=== PATIENT | female | born 1965 | race Caucasian/White ===

== ENCOUNTER 2025-01-14 07:42 | Outpatient (AMB) | payer MEDICARE, SELFPAY ==
--- OUTSIDE RECORDS SUMMARY | 2025-01-14 07:45 | XMS_ITS | Clinical Summary ---
Author Organization [facility] [address] [facility] lding Address [address] [place] [address] Phone Care Team Providers Care R D Intern Name Role Phone Bee Pedroza MD Primary Care Provider Allergies Active Allergy Reactions Criticality Noted Date Comments Amoxicillin-Pot Clavulanate Nausea And Vomiting High 10/03/2023 Flavoring Agent (Bulk) Headache 03/16/2017 Artificial sweetener, Sweetness Enhancer Metronidazole Nausea And Vomiting 12/20/2016 Medications latanoprost (XALATAN) 0.005 % ophthalmic solution Administer 1 drop into both eyes at bedtime. 024 Active lisinopril (PRINIVIL,ZESTRIL) 40 mg tablet Take 1 tablet (40 mg total) by mouth 1 (one) time each day. 024 Active melatonin 10 mg tablet Take 1 tablet (10 mg total) by mouth at bedtime. 023 Active insulin glargine (Lantus Solostar U-100 Insulin) 100 unit/mL (3 mL) injection pen 52 Units by subdermal route 1 (one) time each day in the morning. 022 Active multivitamin/iron/f olic acid (CENTRUM ORAL) Take 1 tablet by mouth 1 (one) time each day. Active metFORMIN (GLUMETZA) 500 mg 24 hr tablet Take 2 tablets (1,000 mg total) by mouth 2 (two) times a day with meals. Take 1,000 mg by mouth 2 times daily. 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 V24, [facility] V28),Insulin dependent type 2 diabetes mellitus ([facility] V24, [facility] V28),PAD (peripheral artery disease) ([facility] V24),Fibromyalgia,D iabetic polyneuropathy associated with type 2 diabetes mellitus ([facility] V24, [facility] V28),Employs prosthetic leg Take 1 capsule (20 mg total) by mouth 2 (two) times a day. 180 capsule 1 025 Active aspirin 81 mg EC tablet Take 1 tablet (81 mg total) by mouth 1 (one) time each day. 30 each 025 2025 Active Cinnamon 500 mg capsule Take 1 capsule (500 mg total) by mouth 1 (one) time each day. Active hydroCHLOROthiazide 12.5 mg tablet Take 1 tablet (12.5 mg total) by mouth 1 (one) time each day. 025 2025 Active tirzepatide (Mounjaro) 10 mg/0.5 mL injection Inject 0.5 mL (10 mg total) under the skin every 7 (seven) days. Active pravastatin (PRAVACHOL) 20 mg tablet TAKE 1 TABLET AT BEDTIME 90 tablet 1 025 Active acetaminophen (TYLENOL) 500 mg tablet Take 2 tablets (1,000 mg total) by mouth every 6 (six) hours if needed for mild pain. 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 V24, [facility] V28),Insulin dependent type 2 diabetes mellitus ([facility] V24, [facility] V28),PAD (peripheral artery disease) ([facility] V24),Fibromyalgia,D iabetic polyneuropathy associated with type 2 diabetes mellitus ([facility] V24, [facility] V28),Employs prosthetic leg Take 2 tablets (100 mg total) by mouth at bedtime. 180 tablet 1 Active Ultra-Fine Pen Needle 31 gauge x 5/16 needle USE TO INJECT INSULIN 5 TIMES DAILY 360 each 2 Active nortriptyline (PAMELOR) 50 mg capsule Take 1 capsule (50 mg total) by mouth at bedtime. 90 each 1 Active albuterol HFA (PROAIR HFA ; PROVENTIL HFA ; VENTOLIN HFA) 90 mcg/actuation inhaler USE 2 INHALATIONS EVERY 4 HOURS NEEDED FOR COUGH OR WHEEZING 25.5 g 2 Active SUMAtriptan (IMITREX) 100 mg tablet TAKE 1 TABLET ONCE IF NEEDED FOR MIGRAINE, MAY REPEAT DOSE ONCE IN 2 HOURS IF NO RELIEF. DO NOT EXCEED 2 DOSES IN 24 HOURS 9 tablet 27 Active gabapentin (NEURONTIN) 300 mg capsule TAKE 2 CAPSULES IN THE MORNING, 2 CAPSULES AT NOON AND 4 CAPSULES AT BEDTIME 720 capsule Active buPROPion XL (WELLBUTRIN XL) 300 mg 24 hr tablet TAKE 1 TABLET ONE TIME EACH DAY IN THE MORNING TOGETHER WITH 150 MG OF BUPROPION FOR A TOTAL OF 450 MG 90 tablet Active buPROPion XL (WELLBUTRIN XL) 150 mg 24 hr tablet TAKE 1 TABLET ONE TIME EACH DAY IN THE MORNING TOGETHER WITH 300 MG OF BUPROPION FOR A TOTAL OF 450 MG 90 tablet Active buPROPion XL (WELLBUTRIN XL) 150 mg 24 hr tablet TAKE 1 TABLET ONE TIME EACH DAY IN THE MORNING TOGETHER WITH 300 MG OF BUPROPION FOR A TOTAL OF 450 MG 90 tablet 2024 Discontinued buPROPion XL (WELLBUTRIN XL) 300 mg 24 hr tablet TAKE 1 TABLET ONE TIME EACH DAY IN THE MORNING TOGETHER WITH 150 MG OF BUPROPION FOR A TOTAL OF 450 MG 90 tablet 2024 Discontinued gabapentin (NEURONTIN) 300 mg capsule TAKE 2 CAPSULES IN THE MORNING, 2 CAPSULES AT NOON AND 4 CAPSULES AT BEDTIME 720 capsule 025 2024 Discontinued Active Problems Problem Noted Date Diagnosed Date Bilateral adrenal adenomas 11/28/2024 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) 11/01 Amputation of left lower ext remity below knee (CMS/HCC V24, [facility] V28) 10/14/2024 Pulmonary nodule 10/12/2024 Assessment & Plan (10/15/2024 9:50 AM EDT): Ms. Morales is a 59 y.o. female who had an incidental finding of a 7 mm lobulated nodule in the superior segment of the right lower lobe on a neck CT done on 06/29/24. A chest CT obtained following this finding confirmed this finding, as well as some other nodules. Scattered subcentimeter noncalcified pulmonary nodules are nonspecific. No thoracic lymphadenopathy. Decision at that time was for a repeat chest CT to be obtained in [address] done on 10/08/24 showing stability in the lobulated nodule seen in the superior segment of the right lower lobe, as well stability in the other nodules when compared to the 06/29/24 scan. There was a 16 mm solid, noncalcified nodule at the base of the right lower lobe which was partially obscured on the previous exam but appears grossly without significant change. There is a new 4 mm solid, noncalcified nodule at the base of the right lower lobe is not seen on the previous study. No developing thoracic lymphadenopathy is seen. Discussion was had in regards o pulmonary nodules again in general and how their size, shape, and change management specialist time affect the level of suspicion for malignancy. Options were discussed with the patient including continued observation and referral to Interventional Pulmonology for potential biopsy of these nodules. Patient is advised to call the office with any questions or concerns prior to this appointment. Asthma 12/28/2023 Chronic low back pain 12/28/2023 Migraine 12/28/2023 PCOS (polycystic ovarian syndrome) 12/28/2023 Morbid obesity with BMI of 4 0.0-44.9, adult ([facility] V24, [facility] V28) 12/28/2023 Type 2 diabetes mellitus wit h peripheral angiopathy ([facility] V24, [facility] V28) 02/16/2022 Hyperlipidemia 01/07/2021 Depression 06/18/2020 Cataracts, bilateral 04/28/2020 Type 2 diabetes mellitus wit h diabetic nephropathy ([facility] V24, [facility] V28) 09/16/2019 Seasonal allergies 07/05/2019 Insomnia 01/01/2019 Snoring 12/14/2018 Overview (12/28/2023): 12/2018 Home Sleep Study did not reveal sleep apnea or nocturnal hypoxia. Anxiety 09/10/2018 Type 2 diabetes mellitus wit h mild nonproliferative retinopathy of left eye and macular edema ([facility] V24, [facility] V28) 05/10/2018 Foot deformity 07/18/2017 Overview (12/28/2023): Considering surgical intervention with [facility], Dr. 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 V24) 12/02/2016 Overview (12/28/2023): Outpatient f/u with Dr. Zak Alfaro, [facility] Car[facility] Resolved Problems Problem Noted Date Diagnosed Date Resolved Date Above knee amputation of lef t lower extremity ([facility] V24, [facility] V28) 10/14/2024 10/14/2024 Transient neurological symptoms 06/28/2024 06/30/2024 Encounters Date Type Department Care Team Description 01/08/2025 Telephone Adult Medicine [address] [phone] eBe Pedroza MD 11/27/2024 1:30 PM EDT Office Visit [facility] Hematology Oncology [address] [place] [phone] Ashtyn Linder MD Carcinoid tumor of right lung ([facility] V28) (Primary Dx); Bilateral adrenal adenomas 11/20/2024 9:47 AM EDT - 11/20/2024 11:59 PM EDT Hospital Encounter [facility] Pulmonary [address] [place] [phone] Carcinoid tumor of right lung (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); Malignant carcinoid tumor of the bronchus and lung (CMS/HCC V24, CMS/HCC V28) Discharge Disposition: Home or Self Care 11/11/2024 Telephone Thoracic Surgery [address] [phone] Misti Delcid RN 11/05/2024 9:30 AM EDT Office Visit Pulmonology [address] [phone] Trina Peter MD 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) (Primary Dx); Malignant carcinoid tumor of the bronchus and lung (CMS/HCC V24, CMS/HCC V28) 10/30/2024 8:15 AM EDT Anesthesia Event [facility] [address] [place] [phone] Gi Solis MD 10/30/2024 8:15 AM EDT - 10/30/2024 10:25 AM EDT Surgery [facility] OR [address] [place] [phone] Trina Peter MD FLEXIBLE BRONCHOSCOPY [[id number] (CPT )] 10/30/2024 6:26 AM EDT - 10/30/2024 12:47 PM EDT Hospital Encounter [facility] [address] [place] [phone] Trina Peter MD Pain; Lung nodule Discharge Disposition: Home or Self Care 10/21/2024 Telephone [address]ology [address] [phone] Gail Phipps MA 10/18/2024 8:00 AM EDT Office Visit Pulmonology - [place] [address] [phone] Trina Peter MD Pulmonary nodule; SOB (shortness of breath) 10/15/2024 9:30 AM EDT Office Visit Thoracic Surgery - [place] [address] [phone] Gladys Mccallum NP Pulmonary nodule (Primary Dx) 10/14/2024 10:00 AM EDT Office Visit Adult Medicine - [address] [phone] Jim [place] PA Medicare annual wellness visit, subsequent (Primary Dx); Dog bite, initial encounter; Migraine without status migrainosus, not intractable, unspecified migraine type; Occlusion of right vertebral artery; Type 2 diabetes mellitus with other specified complication, with long-term current use of insulin ([facility] V24, [facility] V28); Insomnia, unspecified type; Anxiety; Depression, unspecified depression type; Class 2 severe obesity with serious comorbidity and body mass index (BMI) of 38.0 to 38.9 in adult, unspecified obesity type (CMS/HCC V24, [facility] V28); Below-knee amputation of left lower extremity, sequela ([facility] V24) from Last 3 Months Immunizations Immunization Administration Dates Next Due Influenza Quadravalent, MDCK , 0.5ml, preservative free (Flucelvax) 6mo and older 01/07/2021 Influenza Quadravalent, MDCK , 0.5ml, with preservative (Flucelvax) 6mo and older 12/20/2016 Influenza Quadrivalent, 0.5m l, preservative free (Fluarix; FluLaval; Fluzone) ages 6mo and older (Afluria) 3yo and older 01/06/2023,12/22/2021 Influenza trivalent, with pr eservative (Fluzone; Afluria) 6mo and older 12/31/2019,12/14/2018,12/01/2017 Influenza, Unspecified 01/10/2023 Pfizer (ages 12 & older) Bivalent, COVID-19 09/2022 Pneumococcal polysaccharide 23 valent (Pneumovax 23) 2yo and older 12/12/2016 Tdap Tetanus diptheria acell ular pertussis (Boostrix; Adacel) 7yo and older 03/16/2017 Zoster recombinant (Shingrix ) 19yo and older 12/01/2017,08/09/2017 Surgical History Surgery Date Site/Laterality Comments SHOULDER SURGERY 09/2016 Right PROCEDURE: HISTORICAL SHOULDER SURGERY; COMMENT: rotator cuff OTHER SURGICAL HISTORY PROCEDURE: INCISION OF ANAL FISTULA; COMMENT: rectoperineal fistula, Dr. Fry at [facility] FOOT SURGERY 12/12/2016 Right PROCEDURE: HISTORICAL FOOT SURGERY; COMMENT: diabetic foot ulcer debridement, 1st and 2nd metatarsal head FOOT SURGERY 08/22/2017 PROCEDURE: HISTORICAL FOOT SURGERY; COMMENT: [facility], Dr. Damico; right hallux metatarsophalangeal fusion 2 through 5, Uribe procedure with tendo Achilles lengthening CATARACT EXTRACTION 11/2019 Bilateral PROCEDURE: HISTORICAL CATARACT REMOVAL AMPUTATION Left Below knee Medical History Medical History Date Comments Asthma DX:Asthma Chronic low back pain DX:Chronic low back pain Diabetes mellitus ([facility] V 24, [facility] V28) DX:Diabetes mellitus ([facility]) H/O diabetic foot ulcer 11/2016 DX:H/O d iabetic foot ulcer; COMMENT: right JUS (acute kidney injury) ([facility] V24) 12/2016 DX:JUS (acute kidney injury) ([facility]) Injury of right rotator cuff DX: Injury of right rotator cuff PCOS (polycystic ovarian syndrome) DX:PCOS (polycystic ovarian syndrome) Migraine DX:Migraine Heart disease DX:Heart disease Essential hypertension DX:Essent ial hypertension Employs prosthetic leg Family History Medical History Relation Name Comments No Known Problems Aunt Seizures Brother 1 No Known Problems Brother 2 Coronary artery disease Father glau coma, seizures No Known Problems Maternal Grandfather No Known Problems Maternal Grandmother Brain Aneurysm Mother RA, asthma, f ibromyalgia No Known Problems Other Diabetes Paternal Grandfather No Known Problems Paternal Grandmother No Known Problems Uncle Relation Name Status Comments Aunt Brother 1 Alive Brother 2 Alive Father Alive Maternal Grandfather Maternal Grandmother Mother Alive Other Paternal Grandfather Paternal Grandmother Uncle Social History Tobacco Use Types Packs/Day Years Used Date Smoking Tobacco: Former Smokeless Tobacco: Never Tobacco Cessation:Counseling Given: Not Answered Alcohol Use Standard Drinks/Week Comments Not Currently 0 (1 standard drink = 0.6 oz pur e alcohol) Housing Instability Answer Date Recorde d Are you worried that in the next 2 months you may not have stable housing? No 10/14/2024 Food Access & Nutrition Answer Date Rec orded Do you have access to a vari ety of food including fruits and vegetables? Yes 10/14/2024 Access to Healthcare Answer Date Record ed Within the last 3 months, ho w many times did you visit the emergency department for your medical care? 0 10/14/2024 Health Literacy Answer Date Recorded How often do you need to hav e someone help you when you read instructions, pamphlets, or other written material from your doctor or pharmacy? Never 10/14/2024 Caregiver: How often do you need to have someone help you when you read instructions, pamphlets, or other written material from your doctor or pharmacy? Not on file 10/14/2024 Financial Risk Answer Date Recorded How hard is it for you to pa y for the very basics like food, housing, medical care, and air conditioning / heating? Hard 10/14/2024 Transportation Answer Date Recorded Has the lack of transportati on kept you from meetings, work, or from getting things needed for daily living? No Has the lack of transportati on kept you from medical appointments or from getting medications? No 10/14/2024 Social Isolation Answer Date Recorded How often do you feel lonely or isolated from those around you? Sometimes 10/14/2024 Food Risk Answer Date Recorded Within the past 12 months we worried whether our food would run out before we got money to buy more. Never true 10/14/2024 Within the past 12 months th e food we bought just didn't last and we didn't have money to get more. Never true 10/14/2024 Dependent Care Answer Date Recorded Do you need help finding or paying for care for your loved ones. For example, early childhood education instructor or elderly care for an older adult? No 10/14/2024 Education Answer Date Recorded Do you think completing more education or training, like finishing a GED, going to college, or learning a trade, would be helpful for you? No 10/14/2024 Employment and Income Answer Date Recor ded During the last four weeks, have you been actively looking for work? No 10/14/2024 Living Situation Answer Date Recorded What is your living situation? Unrecognized valu e 10/14/2024 Interpersonal Safety Answer Date Record ed Physical Abuse Unrecognized value 06/28/2024 Verbal Abuse Unrecognized value 06/28/2024 Comments No Sex and Gender Information Value Date Recorded Sex Assigned at Female 02/05/2024 8:37 AM EST Legal Sex Female 4:18 PM EST Gender Identity Female 02/05/2024 8:37 AM EST Sexual Orientation Straight 07/08/2024 10 :13 AM EDT Obstetrics History Para Term AB IAB SAB Ectopic Multiple Livin g Live Births 0 0 0 0 Last Filed Vital Signs Vital Sign Reading Time Taken Comments Blood Pressure 138/87 11/27/2024 1:29 PM EDT Pulse 97 11/27/2024 1:29 PM EDT Temperature 36.8 C (98.2 F) 11/27/2024 1:29 PM EDT Respiratory Rate 16 10/30/2024 11:4 5 AM EDT Oxygen Saturation 99% 11/27/2024 1:2 9 PM EDT Inhaled Oxygen Concentration - - Weight 120 kg (264 lb) 11/27/2024 1:29 PM EDT 274 w/ prosthesis Height 182.9 cm (6') 11/27/2024 1:29 PM EDT Body Mass Index 35.8 11/27/2024 1:29 PM EDT Plan of Treatment Upcoming Encounters Date Type Department Care Team (Late st Contact Info) Description 02/11/2025 1:00 PM EST Office Visit Pulmonology - [place] [address] [phone] Trina Peter MD [address] [place] [phone] 02/14/2025 1:00 PM EST Office Visit Adult Medicine - [place] [address] [place] [phone] Bee Pedroza MD [address] [place] [address] 11/27/2025 11:30 AM EDT Office Visit [facility] Hematology Oncology [address] [place] [phone] Ashtyn Goff MD [address] [place] [phone] Health Maintenance Due Date Last Done Comments Hepatitis B Vaccines (1 of 3 - 19+ 3-dose series) 1984 Cervical Cancer Screening: Pap Smear 1986 RSV Immunization Adult Patients (1 - Risk 50-74 years 1-dose series) 2015 HIV Screening 03/12/2022 Diabetes: Annual Foot Exam 09/06/2024 09/07/2023 COVID-19 Vaccine ( season) 2024 01/06/2023, 12/22/2021, 03/23/2021, Additional history exists Influenza Vaccine (#1) 2024 , 01/06/2023, 12/16/2022, Additional history exists Diabetes: Blood Sugar Control Test (HGBA1C) 05/09/2025 11/06/2024, 11/06/2024, 08/14/2024, Additional history exists Medicare Annual Wellness Visit 10/14/2025 10/14/2024 Social Influencers of Health Screening 10/14/2025 10/14/2024 Diabetes: Annual GFR (Glomerular Filtration Rate) 10/18/2025 10/18/2024, 06/29/2024, 06/28/2024, Additional history exists Hypertension/CHF/CAD Annual BMP Blood Test 10/18/2025 10/18/2024, 06/29/2024, 06/28/2024, Additional history exists Diabetes: Annual Urine Albumin-Creatinine Ratio (uACR) 11/06/2025 11/06/2024, 08/14/2024, 06/04/2024, Additional history exists Diabetes: Annual Retina Eye Exam 11/08/2025 11/08/2024, 12/26/2023 Breast Cancer Screening 06/12/2026 06/13/19 25, 06/30/2023, 06/02/2023, Additional history exists DTaP,Tdap,and Td Vaccines (2 - Td or Tdap) 03/16/2027 03/16/2017 Colorectal Cancer Screening: Colonoscopy 09/26/2028 09/26/2018 Cholesterol Screening (Lipid Panel) 06/29/2029 06/29/2024, 02/01/2024, 09/28/2022 Zoster Vaccines Completed 12/01/2017, 08/09/2017 Hepatitis C Screening Completed 01/07/2021 Pneumococcal Vaccine: 50+ Years Completed 01/07/2023, 12/12/2016 Depression Screening Completed 10/14/2024 HIB Vaccines Aged Out No longer eligi ble based on patient's age to complete this topic HPV Vaccines Aged Out No longer eligi ble based on patient's age to complete this topic Hepatitis A Vaccines Aged Out No long er eligible based on patient's age to complete this topic IPV Vaccines Aged Out No longer eligi ble based on patient's age to complete this topic MMR Vaccines Aged Out No longer eligi ble based on patient's age to complete this topic Meningococcal ACWY Vaccine Aged Out N o longer eligible based on patient's age to complete this topic Meningococcal B Vaccine Aged Out No l onger eligible based on patient's age to complete this topic RSV Immunization Patients Under 20 months Aged Out No longer eligible based on patient's age to complete this topic Varicella Vaccines Aged Out No longer eligible based on patient's age to complete this topic Medical Devices Implanted Type Area Tire Recapper Device Identifier Shelf Expiration Date Model / Serial / Lot Marker Cobra Superlock - Sn/A - [id number] Implanted:Qt y: 1 on 10/30/2024 by Trina Peter MD at 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 (CMS/HCC V24, CMS/HCC V28) EXTERNAL DIABETIC RETINA EYE EXAM 11/08/2024 XR CHEST 1 VIEW STAT 10/30/2024 10:30 AM EDT POCT GLUCOSE BLOOD Routine 10/30/2024 10 :18 AM EDT OXYGEN THERAPY, ADULT Routine 10/30/2024 9:56 AM EDT XR FLUORO UP TO 1 HOUR (STATISTICS)(NO REPORT) Routine 10/30/2024 9:56 AM EDT Pain TISSUE EXAM Routine 10/30/2024 8:35 AM EDT Lung nodule CULTURE RESPIRATORY WITH GRAM STAIN Routine 10/30/2024 8:35 AM EDT Lung nodule CULTURE AFB AND SMEAR Routine 10/30/2024 8:35 AM EDT Lung nodule CULTURE FUNGUS, MISCELLANEOUS SOURCE Routine 10/30/2024 8:35 AM EDT Lung nodule NON-GYNECOLOGIC CYTOLOGY Routine 10/30/2024 8:31 AM EDT Lung nodule MD BRONCHOSCOPY INCL FLUROSCOPIC GUIDANCE W PLCMNT FIDUCIAL MARKER SGL/MULT 10/30/2024 8:15 AM EDT Lung nodule MD BRONCHOSCOPY RIGID/FLEXIBLE W/EBUS >=3 MEDIASTINAL/HILAR LYMPH NODES 10/30/2024 8:15 AM EDT Lung nodule MD BRONCHOSCOPY RIGID/FLEXIBLE W/TRANSBRONCHIAL LUNG BIOPSY(S) SINGLE LOBE 10/30/2024 8:15 AM EDT Lung nodule MD BRONCHOSCOPY RIGID/FLEXIBLE COMPUTER ASSISTED IMAGE GUIDED NAVIGATION 10/30/2024 8:15 AM EDT Lung nodule MD BRONCHOSCOPY INCL FLUORO GUIDANCE W BRONCHIAL/ENDOBRONCHIAL BX SGL/MULT 10/30/2024 8:15 AM EDT Lung nodule POCT GLUCOSE BLOOD Routine 10/30/2024 7: 57 AM EDT POC PREGANCY, URINE NO CHARGE SCREENING MANUALLY RESULTED Routine 10/30/2024 7:49 AM EDT CBC WITH AUTO DIFFERENTIAL Routine 10/18/2024 8:55 AM EDT Pulmonary nodule PROTHROMBIN TIME WITH INR Routine 10/18/2024 8:55 AM EDT Pulmonary nodule SOB (shortness of breath) BASIC METABOLIC PANEL Routine 10/18/2024 8:55 AM EDT Pulmonary nodule CBC AND DIFFERENTIAL Routine 10/18/2024 8:55 AM EDT Pulmonary nodule LIPID PANEL WITH REFLEX TO DIRECT LDL Routine 06/29/2024 7:15 AM EDT MG MAMMO DIGITAL DIAGNOSTIC W BERTO BILAT Routine 06/12/2024 9:59 AM EDT Abnormal mammogram DIABETES FOOT EXAM Routine 09/07/2023 URINE ALBUMIN CREATININE RATIO Routine 09/28/2022 HEMOGLOBIN A1C Routine 09/28/2022 HEPATITIS C SCREENING Routine 01/07/2021 COLONOSCOPY Routine 09/26/2018 from Last 3 Months or Most Recently Relevant to Health Maintenance Results * (ABNORMAL) Chromogranin A (11/27/2024 2:10 PM EDT) Chromogranin A 1,812(H) 0 - 187 ng/mL 12/03/2024 10:36 AM EDT [facility] Comment: Result will flag as High if serum concentration is above the 95th percentile of CgA concentrations observed in healthy individuals. However, this comparison to reference range does NOT determine whether the test should be considered as a positive or negative result. An increase of CgA serum concentrations of more than 50% to a value of greater than 100 ng/ml between consecutive monitoring visits defines a positive test result, representing a higher probability that a tumor progression has occurred. A change of CgA serum concentrations of equal or less than 50% increase between monitoring visits or to a value of 100 ng/ml or less defines a negative test result, representing a lower probability that a tumor progression has occurred. Non-tumor related elevations of Chromogranin A can be observed in gastrointestinal, cardiovascular, and renal disorders, cancers other than neuroendocrine tumors, as well as with proton pump inhibitor (PPI) therapy. It is recommended to stop PPI treatment for at least 14 days prior to testing. This test is performed using the [employer] CGA II Kryptor kit. Results obtained with different methods or kits cannot be used interchangeably. Results cannot be interpreted as absolute evidence of the presence or absence of malignant disease and should be evaluated in combination with clinical symptoms, diagnostic evidence, and/or other laboratory parameters. The change of CgA concentration over time provides diagnostic information about whether tumor progression may have occurred. This is not considered to be a cancer screening assay. Test performed at [facility], [address] [place], [place] [id number] Tala Wen MD, PhD - Junior Bookkeeper Blood Venous blood specimen / Unknown Venipuncture / Unknown 11/27/2024 2:10 PM EDT 11/27/2024 4:28 PM EDT [facility] BLOOD ORDERABLE S Final Result [facility] [address] [place] [address] * Pulmonary function testing: Carbon Monoxide Diffusing Capacity, Nitrogen Wash Out, Spirometry with Bronchodilator (11/20/2024 10:38 AM EDT) Narrative Rosio Mackey MD - 11/21/2024 12:43 PM EDT Table formatting from the original result was not included. Images from the original result were not included. [facility] [address] [place] [address] Pulmonary Functions Report Date of service: 11/20/24 Patient Name: Tony Morales Date of : 1965 Age: 59 y.o. 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 Carbon Monoxide Diffusing Capacity,Nitrogen Wash Out,Spirometry with Bronchodilator Pulmonary Test Finding: Spirometry/ Flow Volume Loop: FEV1 is 1.96 at 62 % of predicted., FVC is 60 % of predicted. , FEV1/FVC ratio is 80 % of predicted. Spirometry Post Bronchodilator Response: No bronchodilator response. Lung Volumes: TLC is 55 % of predicted. RV is 52 % of predicted. RV/TLC is is 99 % of predicted. Diffusion Capacity: DLCO is 50 % of predicted (Adjusted DLCO is 50 %). DLCO/VA is 105 % of predicted. Quality of Study: Meets ATS criteria for acceptability and repeatability Refer to scanned report for all additional results and graphs. Interpretation/Impression: No obstruction. Moderate restriction. And moderate decrease in diffusion. Findings consistent with moderate restrictive lung disease. us Trina Peter MD PFT ORDERABLES Final Resu lt * PET CT Skull to Mid Thigh Initial (11/14/2024 10:00 AM EDT) Anatomical Region Laterality Modality Body Radiographic Maritza ging 11/20/2024 4:13 PM EDT Impressions 11/20/2024 4:36 PM EDT Impression: Faint radiotracer uptake within the larger nodule at the right lung base, without radiotracer uptake elsewhere in the chest. Bilateral adrenal nodules with radiotracer uptake. -------- FINAL REPORT -------- Dictated By: Jared Aquino Dictated Date: 11/20/2024 16:13 ET Assigned Physician: Jared Aquino Reviewed and Electronically Signed By: Jared Aquino Signed Date: 11/20/2024 16:36 ET Workstation ID: [id number] Transcribed By: Self Edit Transcribed Date: 11/20/2024 16:13 ET Narrative 11/20/2024 4:[address] Scan CLINICAL HISTORY: Lung nodule, > 8mm carcinoid tumor . . Technique: The patient received an intravenous injection of Gallium 68 dotatate. After a short delay a whole body PET scan was obtained from the skull base through midthighs. Additionally a low dose, unenhanced CT scan was acquired for attenuation correction and anatomic localization. The CT portion of the examination was done strictly for attenuation correction and is not a true diagnostic CT examination. Total DLP: 1269 mGy/cm GA-68 dotatate dose in mCi: 4.7 Comparison: Findings: Head and Neck: No abnormal radiotracer uptake. Calcified left adrenal nodule. Chest: Again noted 1.6 cm nodule at the medial right lung base with marker noted, SUVmax = 3.30. 7 mm nodule in the right lower lobe also reidentified without radiotracer uptake. Abdomen and Pelvis: Bilateral adrenal nodules with radiotracer uptake bilaterally SUVmax = 11.07 on the right and 10.88 on the left. Hiatal hernia. Gallstones. Musculoskeletal: No abnormal radiotracer uptake. Degenerative changes of the hips and spine. Procedure Note Jared Aquino MD - 11/20/[address] Scan CLINICAL HISTORY: Lung nodule, > 8mm carcinoid tumor . . Technique: The patient received an intravenous injection of Gallium 68dotatate. After a short delay a whole body PET scan was obtained from theskull base through midthighs. Additionally a low dose, unenhanced CT scanwas acquired for attenuation correction and anatomic localization. The CTportion of the examination was done strictly for attenuation correctionand is not a true diagnostic CT examination. Total DLP: 1269 mGy/cm GA-68 dotatate dose in mCi: 4.7 Comparison: Findings: Head and Neck: No abnormal radiotracer uptake. Calcified left adrenalnodule. Chest: Again noted 1.6 cm nodule at the medial right lung base with markernoted, SUVmax = 3.30. 7 mm nodule in the right lower lobe alsoreidentified without radiotracer uptake. Abdomen and Pelvis: Bilateral adrenal nodules with radiotracer uptakebilaterally SUVmax = 11.07 on the right and 10.88 on the left. Hiatalhernia. Gallstones. Musculoskeletal: No abnormal radiotracer uptake. Degenerative changes ofthe hips and spine. IMPRESSION: Impression: Faint radiotracer uptake within the larger nodule at the right lung base,without radiotracer uptake elsewhere in the chest. Bilateral adrenal nodules with radiotracer uptake. -------- FINAL REPORT -------- Dictated By: Jared Aquino Dictated Date: 11/20/2024 16:13 ET Assigned Physician: Jared Aquino Reviewed and Electronically Signed By: Jared Aquino Signed Date: 11/20/2024 16:36 ET Workstation ID: [id number] Transcribed By: Self Edit Transcribed Date: 11/20/2024 16:13 ET Tirna Peter MD IMG NM PROCEDURES Final Re sult * External Diabetic Retina Eye Exam Report (11/08/2024) Anatomical Region Laterality Modality Ultrasound us Provider [facility] IMG US PROCEDURES Final Result * XR Chest 1 View (10/30/2024 10:30 AM EDT) Anatomical Region Laterality Modality Body Radiographic Maritza ging 10/30/2024 10:4 4 AM EDT Impressions 10/30/2024 10:46 AM EDT 1. No acute process in the chest. Report reviewed and signed by : Dr. Wm Evangelista on 10/30/2024 10:46 AM. 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 FINDINGS: There is suggestion of a small hiatal hernia. Fiducial marker right inferior hilar region Normal sized heart. No consolidation. No effusion. Negative for pneumothorax. Negative for acute osseous abnormality, lytic or blastic lesion. 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 FINDINGS: There is suggestion of a small hiatal hernia. Fiducial marker right inferior hilar region Normal sized heart. No consolidation. No effusion. Negative for pneumothorax. Negative for acute osseous abnormality, lytic or blastic lesion. IMPRESSION: 1. No acute process in the chest. Report reviewed and signed by : Dr. Wm Evangelista on 10/30/2024 10:46 AM.Workstation Name - [id number] -------- FINAL REPORT -------- Dictated By: Wm Evangelista Dictated Date: 10/30/2024 10:44 ET Assigned Physician: Wm Evangelista Reviewed and Electronically Signed By: Wm Evangelista Signed Date: 10/30/2024 10:46 ET Workstation ID: [id number] Transcribed By: Self Edit Transcribed Date: 10/30/2024 10:44 ET us Trina Peter MD IMG XR PROCEDURES Final Re sult * POCT Glucose, blood (10/30/2024 10:18 AM EDT) Only the most recent of2 resultswithin the time period is included. [facility] Glucose POCT 130 70 - 199 mg/dL 10/30/2024 10:19 AM EDT [id number] Comment: Fasting Reference Range: 70-99 mg/dL Non-Fasting Reference Range: 70-199 mg/dL Blood Capillary blood specimen / Unknown 10/30/2024 10:18 AM EDT 10/30/2024 10:20 AM EDT us Trina Peter MD LAB POINT OF CARE TEST DOCKED DEVICE UNSOLICITED RESULTS Final Result Performing Organization Address [facility] Co de Phone Number [facility] [address] [place] [address], [place] [phone] * XR Fluoro Up To 1 Hour (Statistics)(No Report) (10/30/2024 9:56 AM EDT) Narrative RIS PACS/VR - 10/30/2024 9:56 AM EDT This order has been auto-finalized and does not contain a result. Trina Peter MD IMG FLUOROSCOPY PROCEDURES Final Result Performing Organization Address [facility] Co de Phone Number RIS PACS/VR * Culture respiratory with gram stain (10/30/2024 8:35 AM EDT) Culture, Respiratory No growth at 3 days 11/02/2024 7:50 AM EDT [facility] Gram Stain Result Few WBCs present 11/02/2024 7:50 AM EDT [facility] Gram Stain Result No organisms seen 11/02/2024 7:50 AM EDT [facility] Wash Structure of lower lobe of right lung / Unknown 10/30/2024 8:35 AM EDT 10/30/2024 10:04 AM EDT Comment:FOR CULTURE, NO CONC MAYRA TB Trina Peter MD LAB MICROBIOLOGY - GENERAL ORDERABLES Final Result Performing Organization Address [facility]/ZIP Co de Phone Number [facility] [address] [place] [address], [place] [phone] * Culture AFB and smear (10/30/2024 8:35 AM EDT) Culture AFB No AFB isolated after 6 weeks. 12/12/2024 9:45 AM EDT [facility] AFB Stain No Acid fast bacilli seen 12/12/2024 9:45 AM EDT [facility] Wash Structure of lower lobe of right lung / Unknown 10/30/2024 8:35 AM EDT 10/30/2024 10:04 AM EDT Comment:FOR CULTURE, NO CONC MAYRA TB us Trina Peter MD LAB MICROBIOLOGY - GENERAL ORDERABLES Final Result Performing Organization Address City/[facility]/ZIP Co de Phone Number [facility] [address] [place] [address], [place] [phone] * Culture fungus, miscellaneous source (10/30/2024 8:35 AM EDT) Culture, Fungus No Yeast or Mold isolated after 4 Weeks. 11/27/2024 12:01 PM EDT [facility] Wash Structure of lower lobe of right lung / Unknown 10/30/2024 8:35 AM EDT 10/30/2024 10:04 AM EDT Comment:FOR CULTURE, NO CONC MAYRA TB us Trina Peter MD LAB MICROBIOLOGY - GENERAL ORDERABLES Final Result Performing Organization Address [facility] de Phone Number [facility] [address] [place] [address], [place] [phone] * Tissue exam (10/30/2024 8:35 AM EDT) Final Diagnosis A. Lung, left lower lobe, endobronchial lesion, biopsy: Benign bronchial mucosa with mature adipose tissue. B. Lung, right lower lobe, cryobiopsy: Low grade neuroendocrine tumor/typical carcinoid tumor, see note. NOTE: Multiple additional levels were examined. The tumor cells in part B is consistent with organoid nesting, and palisading arrangement. No necrosis or mitosis are identified. Immunostains were performed on block B1, and revealed that tumor cells are positive for INSM1 and synaptophysin, and weakly positive for TTF-1, but negative for Napsin A and p40. Ki-67 has very low activities (<1%). The morphology and immunoprofile supports the diagnosis. Informed the results to Dr. Peter through Secure Chat on 11/01/24. This case was shown in an intradepartmental conference on 10/31/2024. The above diagnosis reflects the consensus opinion. 11/01/2024 10:01 AM EDT [facility] Gross Description A. Lung, Left Lower Lobe, ENDOBRONCHIAL LESSION LEFT LOWER LOBE: Received in formalin labeled endobronchial lung LLL are multiple martinez-pink tissue fragments range from 0.1 cm to 0.2 cm in diameter which are filtered and submitted in toto in 1 cassette labeled A1, multiple pieces. LNS (PA, ASCP)CM - 10/30/24 B. Lung, Right Lower Lobe, CRYO RIGHT LOWER LOBE: Received in formalin labeled cryo right lung RLL are multiple martinez-pink tissue fragments ranging from less than 0.1 cm to 0.2 cm in diameter which are filtered and submitted in toto in 1 cassette labeled B1, multiple pieces. LNS (PA, ASCP)CM - 10/30/24 11/01/2024 10:01 AM EDT [facility] Disclaimer The interpretation of this case included the use of immunohistochemistr y, special stains, and/or analyte specific reagent(s). Unless otherwise specified, controls were performed and stained appropriately. These tests have not been cleared or approved by the U.S. Food and Drug Administration. The FDA has determined that such clearance or approval is not necessary. These tests are used for clinical purposes and should not be regarded as investigational or for research. This laboratory is certified to perform high complexity testing under the Clinical Laboratory Improvement Amendments of 1988. The technical components of this case were performed at [address] [id number] 11/01/2024 10:01 AM EDT [facility] Tissue Structure of lower lobe of right lung / Unknown 10/30/2024 8:35 AM EDT 10/30/2024 10:36 AM EDT Tissue specimen (specimen) Structure of lower lobe of left lung / Unknown 10/30/2024 9:51 AM EDT 10/30/2024 10:36 AM EDT us Trina Peter MD LAB PATHOLOGY ORDERABLES F inal Result [facility] [address] [place] [address], [place] [phone] * Non-gynecologic cytology (10/30/2024 8:31 AM EDT) Final Diagnosis A. Lung, right lower lobe, fine-needle aspiration (ThinPrep and cell block): Positive for tumor cells. B. Lung, right lower lobe, washing (ThinPrep and cell block): Negative for malignancy. Refer to surgical case [id number]. Dr. Dyer also reviewed the case and concurred with the diagnosis. 11/01/2024 10:03 AM EDT [facility] Specimen A Adequacy Satisfactory for evaluation 11/01/2024 10:03 AM EDT [facility] Specimen B Adequacy Satisfactory for evaluation 11/01/2024 10:03 AM EDT [facility] Clinical Information IN CYTO 11/01/2024 10:03 AM EDT [facility] Gross Description A. Lung, Right Lower Lobe, FNA RIGHT LOWER LOBE: Received: 40 cc pink CytoLyt dark flecks and tissue fragments for ThinPrep and Cell Block. B. Lung, Right Lower Lobe, WASH RIGHT LOWER LOBE: Received: 35 cc slightly pink CytoLyt with dark flecks for ThinPrep and Cell Block. 11/01/2024 10:03 AM EDT [facility] Disclaimer The technical components of this case were performed at [address] [address] CLIA # [id number] 11/01/2024 10:03 AM EDT [facility] Fine Needle Aspirate Structure of lower lobe of right lung / Unknown 10/30/2024 8:31 AM EDT 10/30/2024 11:16 AM EDT Comment:IN CYTO Specimen obtained by lavage (specimen) Structure of lower lobe of right lung / Unknown 10/30/2024 8:34 AM EDT 10/30/2024 11:16 AM EDT Comment:IN CYTO Trina Peter MD LAB CYTOLOGY ORDERABLES Fi nal Result [facility] [address] [place] [address], [place] [phone] * POC , urine NO CHARGE screening manually resulted (10/30/2024 7:49 AM EDT) Pathologist [facility] HCG, Ur POC Negative Negative POC hCG Int QC Pass? Yes Yes Urine Urine specimen obtained by clean catch procedure / Unknown 10/30/2024 7:49 AM EDT Trina Peter MD POINT OF CARE TEST ENTER/E DIT ORDERABLES Final Result * (ABNORMAL) CBC auto differential (10/18/2024 8:55 AM EDT) Pathologist [facility] WBC 7.0 4.8 - 10.8 K/mcL LAB HEMETOLOGY METHOD 10/18/2024 10:07 AM EDT [facility] RBC 4.10 3.80 - 4.80 M/mcL LAB HEMETOLOGY METHOD 10/18/2024 10:07 AM EDT [facility] Hemoglobin 11.3(L) 11.5 - 16.0 g/dL LAB HEMETOLOGY METHOD 10/18/2024 10:07 AM EDT [facility] Hematocrit 35.0 35.0 - 47.0 % LAB HEMETOLOGY METHOD 10/18/2024 10:07 AM EDT [facility] MCV 85.8 79.0 - 98.0 FL LAB HEMETOLOGY METHOD 10/18/2024 10:07 AM [facility] MCH 27.7 27.0 - 32.0 pcg LAB HEMETOLOGY METHOD 10/18/2024 10:07 AM [facility] MCHC 32.3 32.0 - 37.0 g/dL LAB HEMETOLOGY METHOD 10/18/2024 10:07 AM [facility] RDW 13.1 11.0 - 15.0 % LAB HEMETOLOGY METHOD 10/18/2024 10:07 AM [facility] Platelets 292 130 - 400 K/mcL LAB HEMETOLOGY METHOD 10/18/2024 10:07 AM [facility] MPV 8.9 7.0 - 11.0 FL LAB HEMETOLOGY METHOD 10/18/2024 10:07 AM [facility] NRBC 0.0 <1.0 % LAB HEMETOLOGY METHOD 10/18/2024 10:07 AM [facility] NRBC Absolute 0.00 <0.10 K/mcL LAB HEMETOLOGY METHOD 10/18/2024 10:07 AM [facility] Neutrophils Relative 64.3 % LAB HEMETOLOGY METHOD 10/18/2024 10:07 AM [facility] Lymphocytes Relative 25.8 % LAB HEMETOLOGY METHOD 10/18/2024 10:07 AM [facility] Monocytes Relative 7.4 % LAB HEMETOLOGY METHOD 10/18/2024 10:07 AM [facility] Eosinophils Relative 1.7 % LAB HEMETOLOGY METHOD 10/18/2024 10:07 AM [facility] Basophils Relative 0.7 % LAB HEMETOLOGY METHOD 10/18/2024 10:07 AM [facility] Immature Granulocytes Relative 0.1 % LAB HEMETOLOGY METHOD 10/18/2024 10:07 AM EDT [facility] Neutrophils Absolute 4.49 1.50 - 7.00 K/mcL LAB HEMETOLOGY METHOD 10/18/2024 10:07 AM EDT [facility] Lymphocytes Absolute 1.80 1.00 - 5.00 K/mcL LAB HEMETOLOGY METHOD 10/18/2024 10:07 AM EDT [facility] Monocytes Absolute 0.52 0.20 - 1.00 K/[facility] LAB HEMETOLOGY METHOD 10/18/2024 10:07 AM EDT [facility] Eosinophils Absolute 0.12 0.00 - 0.50 K/[facility] HEMETOLOGY METHOD 10/18/2024 10:07 AM EDT [facility] Basophils Absolute 0.05 0.00 - 0.20 K/mcL LAB HEMETOLOGY METHOD 10/18/2024 10:07 AM EDT [facility] Immature Granulocytes Absolute 0.01 0.00 - 0.03 K/[facility] HEMETOLOGY METHOD 10/18/2024 10:07 AM EDT [facility] Blood Venous blood specimen / Unknown Venipuncture / Unknown 10/18/2024 8:55 AM EDT 10/18/2024 9:28 AM EDT us Trina Peter MD LAB BLOOD ORDERABLES Final Result [facility] [address] [place] [address], * Prothrombin time with INR (10/18/2024 8:55 AM EDT) Protime 12.8 10.6 - 13.9 sec LAB COAGULATION METHOD 10/18/2024 9:53 AM EDT [facility] INR 1.0 LAB COAGULATION METHOD 10/18/2024 9:53 AM EDT [facility] Blood Venous blood specimen / Unknown Venipuncture / Unknown 10/18/2024 8:55 AM EDT 10/18/2024 9:29 AM EDT Trina Peter MD LAB BLOOD ORDERABLES Final Result [facility] [address] [place] [address], * (ABNORMAL) Basic metabolic panel (10/18/2024 8:55 AM EDT) Sodium 137 133 - 145 mmol/L LAB CHEMISTRY METHOD 10/18/2024 10:07 AM [facility] Potassium 4.2 3.5 - 5.5 mmol/L LAB CHEMISTRY METHOD 10/18/2024 10:07 AM [facility] Chloride 104 96 - 110 mmol/L LAB CHEMISTRY METHOD 10/18/2024 10:07 AM [facility] CO2 27 21 - 32 mmol/L LAB CHEMISTRY METHOD 10/18/2024 10:07 AM [facility] Anion Gap 6 3 - 11 LAB CHEMISTRY METHOD 10/18/2024 10:07 AM [facility] Glucose 121(H) 70 - 100 mg/dL LAB CHEMISTRY METHOD 10/18/2024 10:07 AM [facility] BUN 15 5 - 25 mg/dL LAB CHEMISTRY METHOD 10/18/2024 10:07 AM [facility] Creatinine 0.85 0.50 - 1.10 mg/dL LAB CHEMISTRY METHOD 10/18/2024 10:07 AM [facility] eGFR 79 >=60 mL/min/1. 73m2 LAB CHEMISTRY METHOD 10/18/2024 10:07 AM [facility] Comment:Calculation based on the Chronic Kidney Disease Epidemiology Collaboration (CKD-EPI) equation refit without adjustment for race. BUN/Creatinine Ratio 17.6 LAB CHEMISTRY METHOD 10/18/2024 10:07 AM T [facility] Calcium 9.2 8.5 - 10.5 mg/dL LAB CHEMISTRY METHOD 10/18/2024 10:07 AM [facility] Blood Venous blood specimen / Unknown Venipuncture / Unknown 10/18/2024 8:55 AM EDT 10/18/2024 9:28 AM EDT us Trina Peter MD LAB BLOOD ORDERABLES Final Result [facility] [address] [place] [address], [place] [phone] * Lipid panel with reflex to direct LDL (06/29/2024 7:15 AM EDT) Cholesterol 116 0 - 200 mg/dL LAB CHEMISTRY METHOD 06/29/2024 8:30 AM [facility] Triglycerides 108 0 - 150 mg/dL LAB CHEMISTRY METHOD 06/29/2024 8:30 AM [facility] HDL 43 >=40 mg/dL LAB CHEMISTRY METHOD 06/29/2024 8:30 AM [facility] LDL Calculated 51 0 - 100 mg/dL LAB CHEMISTRY METHOD 06/29/2024 8:30 AM [facility] VLDL Cholesterol Deacon 21.6 mg/dL LAB CHEMISTRY METHOD 06/29/2024 8:30 AM [facility] Non HDL Chol. (LDL+VLDL) 73 <145 mg/dL LAB CHEMISTRY METHOD 06/29/2024 8:30 AM [facility] Chol/HDL Ratio 2.7 0.0 - 4.4 LAB CHEMISTRY METHOD 06/29/2024 8:30 AM [facility] Blood Venous blood specimen / Unknown Venipuncture / Unknown 06/29/2024 7:15 AM EDT 06/29/2024 7:38 AM EDT us Jarrod Cantu MD LAB BLOOD ORDERABLES Final Re sult [facility] [address] [place] [address], [place] [phone] * MG Mammo Digital Diagnostic w Berto bilat (06/12/2024 9:59 AM EDT) Anatomical Region Laterality Modality Breast Bilateral Mammography 06/12/2024 10:0 1 AM EDT Impressions 06/12/2024 10:11 AM EDT Probably benign. Follow-up mammogram in one year suggested. Findings and recommendations were conveyed to the patient. BI-RADS CATEGORY: 3 - PROBABLY BENIGN RECOMMENDATION: Diagnostic bilateral mammogram recommended in 1 year. Diagnostic bilateral mammogram recommended in 1 year. Diagnostic bilateral mammogram recommended in 1 year. Diagnostic bilateral mammogram recommended in 1 year. Mammo Location: [facility], [address] [place] [address], [id number], . -------- FINAL REPORT -------- Dictated By: Staci Howell Dictated Date: 06/12/2024 10:01 ET Assigned Physician: Staci Howell Reviewed and Electronically Signed By: Staci Howell Signed Date: 06/12/2024 10:11 ET Workstation ID: [id number] Transcribed By: Self Edit Transcribed Date: 06/12/2024 10:01 ET Narrative 06/12/2024 10:11 AM EDT CLINICAL: 59 years old, Female, focal asymmetry upper outer right breast. Patient did not show up for her scheduled 6 month follow-up. COMPARISON: Mammogram study back to 12/14/2017 with most recent of 06/30/2023. FINDINGS: MAMMOGRAPHY TECHNIQUE: Bilateral MLO and CC views were obtained digitally with 3-D mammogram (digital breast tomosynthesis). Computer-aided detection was utilized in evaluation of this exam (CAD). There is no evidence of architectural distortion. No worrisome calcifications are evident. Focal asymmetry in the slightly outer right breast is unchanged on the CC view. However, this focal asymmetry is not identified on the MLO view. BREAST DENSITY: B - There are scattered areas of fibroglandular density. Procedure Note Staci Howell MD - 06/12/2024 CLINICAL: 59 years old, Female, focal asymmetry upper outer right breast.Patient did not show up for her scheduled 6 month follow-up. COMPARISON: Mammogram study back to 12/14/2017 with most recent of06/30/2023. FINDINGS: MAMMOGRAPHY TECHNIQUE: Bilateral MLO and CC views were obtained digitally with 3-Dmammogram (digital breast tomosynthesis). Computer-aided detection wasutilized in evaluation of this exam (CAD). There is no evidence of architectural distortion. No worrisomecalcifications are evident. Focal asymmetry in the slightly outer rightbreast is unchanged on the CC view. However, this focal asymmetry is notidentified on the MLO view. BREAST DENSITY: B - There are scattered areas of fibroglandular density. IMPRESSION: Probably benign. Follow-up mammogram in one year suggested. Findings andrecommendations were conveyed to the patient. BI-RADS CATEGORY: 3 - PROBABLY BENIGN RECOMMENDATION: Diagnostic bilateral mammogram recommended in 1 year. Diagnostic bilateralmammogram recommended in 1 year. Diagnostic bilateral mammogramrecommended in 1 year. Diagnostic bilateral mammogram recommended in 1year. Mammo Location: [facility], [address] [place] [address], [id number], . -------- FINAL REPORT -------- Dictated By: Staci Howell Dictated Date: 06/12/2024 10:01 ET Assigned Physician: Staci Howell Reviewed and Electronically Signed By: Staci Howell Signed Date: 06/12/2024 10:11 ET Workstation ID: [id number] Transcribed By: Self Edit Transcribed Date: 06/12/2024 10:01 ET Bee Pedroza MD IMG BI PROCEDURES Halie l Result * Diabetes Foot Exam (09/07/2023) HM Diabetes: Annual Foot Exam abstracted Historical Provider HEALTH MAINTENANCE Final Result * Urine Albumin Creatinine Ratio (09/28/2022) Urine Albumin Creatinine Ratio abstracted Historical Provider HEALTH MAINTENANCE Final Result * Hepatitis C Screening (01/07/2021) Hepatitis C Screening abstracted Historical Provider HEALTH MAINTENANCE Final Result * Colonoscopy (09/26/2018) Colonoscopy abstracted, no interpretation Anatomical Region Laterality Modality Other Historical Provider HEALTH MAINTENANCE Final Result from Last 3 Months or Most Recently Relevant to Health Maintenance Insurance MEDICARE [facility] Advance Directives Documents on File Type Date Recorded Patient Sixth Grade Teacher Expl anation Advance Directives and Livin g Will 07/02/2024 3:01 PM [facility] Advance Directives and Livin g Will 07/01/2024 9:23 AM [facility] * Full Code - Default (Latest Code Status on File) Date Activated Date Inactivated Comments 10/30/2024 6:34 AM 10/30/2024 2:57 PM This is orde r is used when code status has not been discussed with the patient, or code status is otherwise unknown/unconfirmed To update the patient's code status, place a code status order. Do not modify or discontinue any currently active code status orders. * Full Code - Default Date Activated Date Inactivated Comments 06/28/2024 11:25 AM 06/30/2024 2:23 PM This is ord er is used when code status has not been discussed with the patient, or code status is otherwise unknown/unconfirmed To update the patient's code status, place a code status order. Do not modify or discontinue any currently active code status orders. Care Teams R D Intern Relationship Specialty Start Date End Date Bee Pedroza MD [address] [place] [address] [place] [address] PCP - General Internal Medicine 06/11/24
--- OUTSIDE RECORDS SUMMARY | 2025-01-14 07:45 | XMS_ITS | Clinical Summary ---
Author Organization [facility], Address [address] [place] [address] [place] [address] Phone Care Team Providers Care Sports Medicine Specialist Name Role Phone Bee Pedroza MD Primary Care Provider Allergies Active Allergy Reactions Criticality Noted Date Comments Metronidazole Nausea And Vomiting 12/20/2016 Sweetness Enhancer Other (see comments) 017 Artificial sweetener Medications gabapentin (NEURONTIN) 600 MG tablet Take ONE tablet every morning take ONE capsule at lunch and TWO tablets at dinner Active ondansetron (ZOFRAN) 4 MG tablet Take 4 mg by mouth 05/30/19 19 Active buPROPion XL (WELLBUTRIN XL) 150 MG 24 hr tablet Take 150 mg by mouth every morning 04/23/19 20 Active omeprazole (PriLOSEC) [address] capsule Take 20 mg by mouth 04/24/19 20 Active pravastatin (PRAVACHOL) 20 MG tablet Take 20 mg by mouth 11/29/19 19 Active traZODone (DESYREL) 50 MG tablet Take 25-50 mg by mouth 01/02/20 19 Active Blood Glucose Monitoring Suppl (Accu-Chek Guide Co) w/Device kit 1 Device twice a day Use glucometer twice daily to check blood sugars Dx code e11.21 1 kit 11/04/19 22 Active glucose blood (Accu-Chek Guide) test strip TEST BLOOD GLUCOSE TWICE DAILY 100 strip 1 01/31/20 24 Active metFORMIN XR (GLUCOPHAGE-XR) 500 MG 24 hr tablet TAKE 2 TABLETS IN THE MORNING AND 2 TABLETS IN THE EVENING, TAKE WITH MEALS, DO NOT CRUSH, CHEW, OR SPLIT 360 tablet 3 06/27/19 25 Active hydroCHLOROthia zide 12.5 MG tabletIndicatio ns:Type 2 diabetes mellitus with diabetic nephropathy (HCC),Type 2 diabetes mellitus with peripheral angiopathy (HCC),Essential hypertension,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 Use 1 reader to check blood sugars twice daily dx code e11.21. 1 each 10/18/19 25 Active Continuous Glucose Sensor (FreeStyle Lary 3 Plus Sensor) misc 1 Device in the morning and 1 Device in the evening and 1 Device before bedtime. Use 1 sensor to check blood sugars three times daily dx code e11.21. 2 each 5 10/18/19 25 Active Tirzepatide (Mounjaro) 10 MG/0.5ML solution auto-injector Inject 10 mg under the skin 1 (one) time per week Dx code e11.21 dose increase 6 mL 3 12/14/19 25 Active lisinopril 40 MG tablet TAKE 1 TABLET DAILY 90 tablet 3 12/27/19 25 Active lisinopril 40 MG tablet TAKE 1 TABLET DAILY 90 tablet 3 01/15/20 24 025 Discontinued Active Problems Problem Noted Date Diagnosed Date Type 2 diabetes mellitus with peripheral angiopa thy 02/16/2022 Morbid obesity 09/19/2019 Type 2 diabetes mellitus with diabetic nephropat hy 09/16/2019 Acquired absence of left leg below knee 05/08/19 20 Essential hypertension 03/16/2017 Hyperlipidemia Acute nontraumatic kidney injury Resolved Problems Problem Noted Date Diagnosed Date Resolved Date Hypertension 09/16/2019 Encounters Date Type Department Care Team Description 12/26/2024 Refill [facility], [address] [place] [address] Abdullahi Caruso DO 12/13/2024 Telephone [facility] [address] [place] [address] Ching Mckinney [facility] 12/13/2024 Orders Only [facility] [address] [place] [address] Ching Mckinney [facility] 12/13/2024 Telephone [facility] [address] [place] [address] Judith Carb[place], [place] 12/11/2024 Office Communication [facility] [address] [place] [address] Jeremy Harmon MA 12/11/2024 Office Communication [facility] [address] [place] [address] Jeremy Harmon [place] 11/13/2024 10:30 AM EDT Clinical Support [facility] [address] [place] [address] Ching Mckinney, [facility] Type 2 diabetes mellitus with diabetic chronic kidney disease (HCC) (Primary Dx) 11/01/2024 Documentation Only [facility] [address] [place] [address] Jeremy Harmon MA 10/17/2024 Refill [facility] [address] [place] [address] Abdullahi Caruso DO from Last 3 Months Immunizations Immunization Administration Dates Next Due Influenza TIV (IM) 12/14/2018,12/01/2017 Influenza, MDCK, Quadrivalent, with preservative 12/20/2016 Pneumococcal Polysaccharide 12/12/2016 Shingrix 12/01/2017,08/09/2017 Tdap 03/16/2017 Family History Medical History Relation Comments Brain Aneurysm Mother Migraines Mother Rheum arthritis Mother Urinary tract infection Mother recurren t Relation Status Comments Mother Social History Tobacco Use Types Packs/Day Years Used Date Smoking Tobacco: Former Cigarettes Alcohol Use Standard Drinks/Week Comments No 0 (1 standard drink = 0.6 oz pur e alcohol) Comments Unknown Sex and Gender Information Value Date Recorded Sex Assigned at Not on file Legal Sex Female 4:36 PM EST Gender Identity Not on file Sexual Orientation Not on file Last Filed Vital Signs Vital Sign Reading Time Taken Comments Blood Pressure 138/80 09/06/2024 2:04 PM EDT Pulse 78 09/06/2024 2:04 PM EDT Temperature - - Respiratory Rate - - Oxygen Saturation - - Inhaled Oxygen Concentration - - Weight 125 kg (275 lb) 02/16/2022 1:49 PM EST Height 167.6 cm (5' 6 ) 05/10/2018 12:01 PM EST Body Mass Index 44.39 05/10/2018 12:01 PM EST Plan of Treatment Upcoming Encounters Date Type Department Care Team (Late st Contact Info) Description 02/03/2025 11:30 AM EST Clinical Support [facility] [address] [place] [address] 03/05/2025 2:45 PM EST Office Visit [facility] [address] [place] [address] Abdullahi Caruso DO [address] [place] [address] [place] [address] Health Maintenance Due Date Last Done Comments Breast Cancer Screening 1965 Hepatitis B Vaccine (1 of 3 - 19+ 3-dose series) 1984 Colorectal Cancer Screening: Annual FOBT 2014 Colorectal Cancer Screening: Colonoscopy 2014 Colorectal Cancer Screening: Sigmoidoscopy 2014 Pneumococcal Vaccine: 50+ Ye ars (2 of 2 - PCV) 12/12/2017 12/12/2016 Diabetes: Pedal Pulse Checked 05/08/2019 Diabetes: Sensory Foot Exam 05/08/2019 Diabetes: Visual Foot Exam 05/08/2019 Diabetes: Ophthalmology Exam 05/10/2019 05/10/2018, 04/04/2017 Influenza Vaccine (#1) 2024 9, 12/01/2017, 12/20/2016 Diabetes: Hemoglobin A1C 02/06/2025 025, 08/14/2024, 06/04/2024, Additional history exists Pneumococcal Vaccine: Peds ( 0 to 5 Years) and At-Risk Patients (6 to 49 Years) Discontinued 12/12/2016 Procedures Procedure Name Priority Date/Time Associated Diagnosis Comments URINE ALBUMIN / CREATININE RATIO Routine 11/06/2024 9:07 AM EDT Type 2 diabetes mellitus with diabetic nephropathy (HCC) Type 2 diabetes mellitus with peripheral angiopathy (HCC) Essential hypertension 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 mg/dL [facility] Albumin, Urine 45.9 Not Estab. ug/mL [facility] Albumin/Creatin ine Ratio 18 0 - 29 mg/g creat [facility] Comment: Normal: 0 - 29 Moderately increased: 30 - 300 Severely increased: >300 Urine Urine specimen obtained by clean catch procedure / Unknown 11/06/2024 9:07 AM EDT 11/06/2024 us Abdullahi Caruso DO LAB URINE ORDERABLES Final Resu lt [facility] [address] [place] [address] * (ABNORMAL) Hemoglobin A1c (11/06/2024 9:07 AM EDT) [facility] Hemoglobin A1C 6.6(H) 4.8 - 5.6 % [facility] Comment: Prediabetes: 5.7 - 6.4 Diabetes: >6.4 Glycemic control for adults with diabetes: <7.0 Blood Venous blood / Unknown 11/06/2024 9:07 AM EDT 11/06/2024 us Abdullahi Caruso DO LAB BLOOD ORDERABLES [facility] [address] [place] [address] * (ABNORMAL) Renal Function Panel (11/06/2024 9:07 AM EDT) [facility] Glucose 116(H) 70 - 99 mg/dL [facility] BUN 15 6 - 24 mg/dL [facility] Creatinine 0.83 0.57 - 1.00 mg/dL [facility] eGFR CKD-EPI CR 2020 81 >59 mL/min/1.7 3 [facility] BUN/Creatinine Ratio 18 9 - 23 [facility] Sodium 138 134 - 144 mmol/L [facility] Potassium 4.2 3.5 - 5.2 mmol/L [facility] Chloride 101 96 - 106 mmol/L [facility] Bicarbonate (CO2) 21 20 - 29 mmol/L [facility] Calcium 9.2 8.7 - 10.2 mg/dL [facility] Phosphorus 3.3 3.0 - 4.3 mg/dL [facility] Albumin 3.8 3.8 - 4.9 g/dL [facility] Blood Venous blood / Unknown 11/06/2024 9:07 AM EDT 11/06/2024 us Abdullahi Caruso DO LAB BLOOD ORDERABLES Final Resu lt [facility] [address] [place] [address] from Last 3 Months Insurance Medicare [facility] Care Teams Sports Medicine Specialist Relationship Specialty Start Date End Date Bee Pedroza MD PCP - General Family Medicine 12/11/23
--- OUTSIDE RECORDS SUMMARY | 2025-01-14 07:45 | XMS_ITS | Clinical Summary ---
Author Organization [facility] Address [address] [place] [address] Phone Care Team Providers Care Project/Production Manager Imaging Name Role Phone Bee Pedroza MD Primary Care Provider Allergies Active Allergy Reactions Criticality Noted Date Comments Amoxicillin-Pot Clavulanate Diarrhea,GI Upset,Nausea and/or Vomiting 11/09/2023 Artificial Sweetener 11/09/2023 Metronidazole Diarrhea,Nausea and/ or Vomiting 11/09/2023 Medications lisinopril (PRINIVIL,ZESTRIL ) 40 MG tablet Take 1 tablet by mouth daily. 3 Active nortriptyline (PAMELOR) 25 MG capsule Take 50 mg by mouth nightly at bedtime. 3 Active SUMAtriptan (IMITREX) 50 MG tablet Take 50 mg by mouth once as needed. 4 Active albuterol (PROAIR HFA) 90 mcg/actuation inhaler Inhale 2 puffs into the lungs as needed. Active buPROPion (WELLBUTRIN XL) 150 MG ER 24 hr tablet Take 150 mg by mouth every morning. 4 Active buPROPion (WELLBUTRIN XL) 300 MG ER 24 hr tablet Take 300 mg by mouth every morning. 4 Active metFORMIN (GLUCOPHAGE-XR) 500 MG 24 hr tablet Take 1,000 mg by mouth. 4 Active omeprazole (PRILOSEC) 20 MG capsule Take 20 mg by mouth daily. Active pravastatin (PRAVACHOL) 20 MG tablet Take 20 mg by mouth daily. Active traZODone (DESYREL) 50 MG tablet Take 75 mg by mouth nightly at bedtime. Active insulin glargine (LANTUS) 100 unit/mL injection vial Inject 50 Units under the skin nightly at bedtime. Active MULTIVITAMIN ORAL Take by mouth. Active gabapentin (NEURONTIN) 300 MG capsule Take 2,400 mg by mouth daily. Active dulaglutide (TRULICITY) 3 mg/0.5 mL subcutaneous injection Inject 3 mg under the skin every 7 days. Active Active Problems Problem Noted Date Diagnosed Date Fibromyalgia 11/12/2023 Assessment & Plan (11/12/2023 4:43 PM EDT): Patient has diffuse muscle pain as well as problems with sleep, depression and anxiety. These are all consistent with the diagnosis of fibromyalgia. I do not manage fibromyalgia on an ongoing basis. I would suggest patient be given a trial on Elavil which along with gabapentin has shown to improve pain perception. Alternatively patient can be referred to a neurologist for further management. Social History Tobacco Use Types Packs/Day Years Used Date Smoking Tobacco: Former Cigarettes Smokeless Tobacco: Never Alcohol Use Standard Drinks/Week Comments Not Currently 0 (1 standard drink = 0.6 oz pur e alcohol) Education Answer Date Recorded Are you interested in more education? Not on dania e 06/21/2023 Are you concerned about learning? Not on file 06/21/2023 No 06/21/2023 No 06/21/2023 Digital Access Answer Date Recorded No 06/21/2023 No 06/21/2023 Reliable internet access at home? Not on file 06/21/2023 Device with a working camera? Not on file Comments Unknown Sex and Gender Information Value Date Recorded Sex Assigned at Not on file Legal Sex Female 9:48 AM EDT Gender Identity Not on file Sexual Orientation Not on file Last Filed Vital Signs Vital Sign Reading Time Taken Comments Blood Pressure 112/60 11/09/2023 3:04 PM EDT Pulse 100 11/09/2023 3:04 PM EDT Temperature - - Respiratory Rate - - Oxygen Saturation 97% 11/09/2023 3:0 4 PM EDT Inhaled Oxygen Concentration - - Weight 126.1 kg (278 lb) 11/09/2023 3:0 4 PM EDT with extra 10lb pros. Height 182.9 cm (6') 11/09/2023 3:04 PM EDT Body Mass Index 37.7 11/09/2023 3:04 PM EDT Plan of Treatment Health Maintenance Due Date Last Done Comments CREATININE LEVEL 1965 LIPID PANEL 1965 POTASSIUM LEVEL 1965 DEPRESSION SCREENING 1977 SMOKING Hx and SMOKELESS TOB ACCO SCREENING 1978 HEPATITIS C SCREENING 1983 HIV ONE-TIME SCREENING (18-6 5 YEARS) 1983 PAP SMEAR 1986 SCREENING FOR DIABETES 2000 MAMMOGRAM 2005 COLOGUARD 2010 COLONOSCOPY 2010 COLORECTAL CANCER SCREENING 2010 FIT TEST 2010 FOBT 2010 SIGMOIDOSCOPY 2010 VIRTUAL COLONOSCOPY 2010 PNEUMOCOCCAL VACCINES (50+ y ears) (1 of 1 - PCV) 2015 ZOSTER VACCINES (1 of 2) 2015 INFLUENZA VACCINE (#1) 2024 COVID-19 VACCINE (1 - 2024-2 6 season) 2024 Adult Td,Tdap Booster 03/16/2027 03/16/2017 RSV VACCINE (1 - 1-dose 75+ series) 2040 HEPATITIS A VACCINES Aged Out No long er eligible based on patient's age to complete this topic HIB VACCINES Aged Out No longer eligi ble based on patient's age to complete this topic MENINGOCOCCAL VACCINES (ACWY) Aged Out No longer eligible based on patient's age to complete this topic MENINGOCOCCAL VACCINES (B) Aged Out N o longer eligible based on patient's age to complete this topic Medical Devices Not on file [place] [address] [place] [address] MEDEX SUPPLEMENT MEDICARE PART A & B MEDEX SUPPLEMENT MEDICARE PART A & B [employer] MEDEX SUPPLEMENT MEDICARE PART A & B [employer] MEDEX SUPPLEMENT MEDICARE PART A & B [employer] MEDEX SUPPLEMENT MEDICARE PART A & B [employer] MEDEX SUPPLEMENT MEDICARE PART A & B Care Teams Project/Production Manager Imaging Relationship Specialty Start Date End Date Bee Pedroza MD [address] [place] [id number] [email or web address] PCP - General Family Medicine 11/09/23 Additional Source Comments The information contained in this document represents components of the legal health record. It is not the complete legal health record.[facility]
--- OUTSIDE RECORDS SUMMARY | 2025-01-14 07:45 | XMS_ITS | Encounter Summary ---
Author Organization [facility], Address [address] [place] [address] Phone Care Team Providers Care Cloth Hand Name Role Phone Bee Pedroza MD Primary Care Provider Encounter Details Date Type Department Care Team (Late st Contact Info) Description 09/28/2022 Documentation Only [facility] [address] [place] [phone] Abdullahi Caruso DO [address] [place] [address] [place] [phone] Social History Tobacco Use Types Packs/Day Years Used Date Smoking Tobacco: Former Cigarettes Alcohol Use Standard Drinks/Week Comments No 0 (1 standard drink = 0.6 oz pur e alcohol) Comments Unknown Sex and Gender Information Value Date Recorded Sex Assigned at Not on file Legal Sex Female 4:36 PM EST Gender Identity Not on file Sexual Orientation Not on file documented as of this encounter Plan of Treatment Upcoming Encounters Date Type Department Care Team (Late st Contact Info) Description 02/03/2025 11:30 AM EST Clinical Support [facility] [address] [place] [phone] 03/05/2025 2:45 PM EST Office Visit [facility] [address] [place] [phone] Abdullahi Caruso, DO [address] [place] [address] documented as of this encounter Visit Diagnoses Not on filedocumented in this encounter Care Teams Cloth Hand Relationship Specialty Start Date End Date Bee Pedroza MD PCP - General Family Medicine 12/11/23 documented as of this encounter
--- OUTSIDE RECORDS SUMMARY | 2025-01-14 07:45 | XMS_ITS | Patient Health Record ---
[facility] Address [address] [facility] [place] [address] Care Team Providers Care Pharmaceutical Sales Representative Name Role Phone Pat Chaudhary Primary Care Provider Natasha Willis Unavailable [phone] Allergies Allergen (clinical drug ingredient) Drug/Non Drug Allergy documented on EMR Reaction Allergy Type Onset Date Status ibuprofen Advil unable to take Drug Allergy Ac tive Aleve unable to take Drug Allergy Ac tive metronidazole Flagyl NVD Drug Allergy Act mal Motrin unable to take Drug Allergy Ac tive Reason For Referral No Information Medications Medication SIG (Take, Route, Frequency, Duration) Notes Start Date End Date Status Nystatin - as directed Active Cymbalta Not-Taking Magnesium 400 MG as directed Orally Active HumuLIN R 100 UNIT/ML as directed Injection Not-Taking metFORMIN HCl 1000 MG 1 tablet with a meal Orally Active Cetirizine HCl Activ e Trulicity 1.5mg Active Gabapentin 600 MG 1 tablet Orally Once a day; Duration: 30 day(s) Active Zofran Active Lantus 50 units Active Extra Depth Diabetic Shoes with 3 Pair Custom heat-molded multi-density innersoles for 1 year Dx: Active Lisinopril 20 MG 1 tablet Orally Once a day; Duration: 30 day(s) Active Cephalexin 500 MG 1 capsule Orally every 12 hrs; Duration: 7 days Not-Taking Multivitamin & Mineral - as directed Orally Active ZyrTEC Allergy 10 MG 1 tablet Orally Once a day; Duration: 30 day(s) Not-Taking Amitriptyline HCl 25 MG 1 tablet at bedtime Orally Once a day; Duration: 30 day(s) Active Omeprazole 20 MG 1 capsule 30 minutes before morning meal Orally Once a day; Duration: 30 day(s) Active Colace 100 MG 1 capsule as needed Orally Once a day; Duration: 30 day(s) PRN Active Pravastatin Sodium 20 MG 1 tablet Orally Once a day; Duration: 30 day(s) Active buPROPion HCl ER (XL) 450 MG 1 tablet in the morning Orally Once a day Active PriLOSEC Active Insulin NPH Insulin 700U Not-Taking Immunizations Vaccine Route Administration Date Status Comme nts Influenza Unknown 12/16/2022 Administered COVID-19 Toby & Toby/Spring Unknown 03/16/2021 Administered 1st dose: 2020 Social History Tobacco Use: Social History Observation Description Date Details (start date - stop date) Former Smoker NA - NA Tobacco Use/Smoking Question Answer Notes Are you a: former smoker Alcohol Screen Question Answer Notes Did you have a drink contain ing alcohol in the past year? Yes How often did you have a dri nk containing alcohol in the past year? Monthly or less (1 point) Points 1 Interpretation Negative Tobacco use other than smoking: Question Answer Notes Are you an other tobacco user? No Problems Problem Type SNOMED Code ICD Code Onset Dates Problem Status W/U Status Risk Notes Problem Acquired hammer toe of right foot (9667112932006826 ) Other hammer toe(s) (acquired), right foot (M20.41) Active confirmed Problem Polyneuropathy due to type 2 diabetes mellitus (043899677) Type 2 diabetes mellitus with diabetic polyneuropathy (E11.42) Active confirmed Problem Polyneuropathy due to diabetes mellitus type I (343880182) Type 1 diabetes mellitus with diabetic polyneuropathy (E10.42) Active confirmed Plan Of Treatment Pending Test Test Name Order Date X ray : Foot, right 3V 04/07/2021 X ray : Foot, right 3V 02/20/2023 [id number] NAIL, 1-5 09/09/2021 [id number] SKIN LESIONS, 2 TO 4 04/07/19 22 [id number] SKIN LESIONS, 2 TO 4 09/10/19 22 Insurance Providers Payer Name Payer Address Payer Phone Subscriber Number Group Number Insured Name Patient Relationship to Insured Coverage Start Date Coverage End Date Medicare National Govt [employer] [address] [place] [address] [id number] Killian Tellez Self - patient is the insured [employer] [facility] [address] [place] [address] [id number] Killian Tellez Self - patient is the insured Medical (General) History Medical History History ICD Code type II diabetes Obesity, morbid Hypertension Hyperlipidemia depression Anxiety Retinopathy polycystic ovary syndrom - PCOS Migraines asthma Cataracts Broken bones Back,Hip,and Knee pain Kidney disease Neuropathy Poor circulation Reflux ( GERD) Sciatica ulcer Transfusions Surgical History Surgery Date(Month/Year) cataract surgery b/l 2019 foot surgery below knee amputation shoulder surgery fistula repair 2007 rotator cuff 09/2016 bunionectomy 08/2017 BKA L 10/28/18 osorio 12/12/16
--- OUTSIDE RECORDS SUMMARY | 2025-01-14 07:45 | XMS_ITS | Encounter Summary ---
Author Organization [facility], Address [address] [place] [address] Phone Care Team Providers Care Door Framer Name Role Phone Bee Pedroza MD Primary Care Provider Encounter Details Date Type Department Care Team (Late st Contact Info) Description 11/01/2024 Documentation Only [facility] [address] [place] [phone] Jeremy [place], [place] [address] [place] [address] Social History Tobacco Use Types Packs/Day Years [...] Support [facility] [address] [place] [phone] 03/05/2025 2:45 PM EST Office Visit [facility] [address] [place] [phone] Abdullahi Caruso DO [address] [place] [address] documented as of this encounter Visit Diagnoses Not on filedocumented in this encounter Care Teams Door Framer Relationship Specialty Start Date End Date Bee Pedroza MD PCP - General Family Medicine 12/11/23 documented as of this encounter
--- OUTSIDE RECORDS SUMMARY | 2025-01-14 07:45 | XMS_ITS | Encounter Summary ---
Author Organization [facility], Address [address] [place] [address] Phone Care Team Providers Care Senior Qualitative Researcher Name Role Phone Bee Pedroza MD Primary Care Provider Encounter Details Date Type Department Care Team (Late st Contact Info) Description 09/27/2024 Documentation Only [facility] [address] [place] [address] Jeremy [place], [place] [address] [place] [address] Social History Tobacco Use Types [...] Support [facility] [address] [place] [phone] 03/05/2025 2:45 PM EST Office Visit [facility] [address] [place] [phone] Abdullahi Caruso DO [address] [place] [address] documented as of this encounter Visit Diagnoses Not on filedocumented in this encounter Care Teams Senior Qualitative Researcher Relationship Specialty Start Date End Date Bee Pedroza MD PCP - General Family Medicine 12/11/23 documented as of this encounter
--- OUTSIDE RECORDS SUMMARY | 2025-01-14 07:45 | XMS_ITS | Encounter Summary ---
Author Organization [facility] Address [address] [place] [address] Care Team Providers Care Travel Trailer Components Assembler Name Role Phone Bee Pedroza MD Primary Care Provider Reason for Referral * Consultation (Routine) - Pending Review Specialty Diagnoses / Procedures Referred By Chay montgomery Referred To Contact Neurology Diagnoses Migraine without status migrainosus, not intractable, unspecified migraine type Occlusion of right vertebral artery TIA (transient ischemic attack) Bee Pedroza MD [address] [place], [place] Phone: tel: fax: Referral ID Status Reason Start Date Expiration Date Visits Requested Visits Authorized [id number] Pending Review Specialty Services Required 01/10/2026 10 10 Reason for Visit * Reason Onset Date Comments Referral 01/08/2025 Neurology - Antoinette lares Encounter Details Date Type Department Care Team (Late st Contact Info) Description 01/08/2025 Telephone Adult Medicine - [place] [address] [place] [phone] Bee Pedroza MD [address] [place], [place] Social History Tobacco Use Types Packs/Day Years Used Date Smoking Tobacco: Former Smokeless Tobacco: Never Alcohol Use Standard Drinks/Week [...] care for your loved ones. For example, children counselor or elderly care for an older adult? [...] Orientation Straight 07/08/2024 10 :13 AM EDT documented as of this encounter Progress Notes * Bee Pedroza MD - 01/10/2025 4:28 PM EDT Referral signed * Sallyvalentina Mays - 01/08/2025 2:38 PM EDT Referral Request: What insurance does the patient have today? Medicare and [employer] Referrals cannot be processed if the insurance is not accurate. If the insurance listed above in red is NO BILLING INFORMATION FOUND FOR THIS ENCOUTNER The patients correct insurance must be obtained and registered in [facility] or their referral can not be processed. Who is calling to request this referral? pt If the caller is not the patient, what is their name? not applicable Ask the patient WHO referred them to this specialty: Patient self referred FIRST and LAST NAME of SPECIALIST PATIENT is seeing: Dr. Emily Fishman @ [facility] Neurology (pt doesn't want to see the previous dr we referred her to, they canceled her appt and it will be many monthsfor rescheduling) What specialty is this? Neurology DIAGNOSIS Patient is being seen for (Not a body part or a procedure): headaches, since stroke on 06/28/24 Have you seen this SPECIALIST for this PROBLEM/DX before? If YES, when? No Have you checked REVIEW or the APPT DESK to see if this referral has already been done or has visits left? yes Is this visit: Initial Visit Address of Specialist: [address] [place] [address] Phone # of Specialist: [phone] Fax #: (if applicable): [phone] Does patient have an appointment scheduled?: no Date of appointment- (including a retro-request): not booked yet, need referral first Is this appointment related to: Not MVA, worker compensation, or surgery related documented in this encounter Plan of Treatment Upcoming Encounters Date Type Department Care Team (Late st Contact Info) Description 02/11/2025 1:00 PM EST Office Visit Pulmonology - [place] [address] [facility] [address] [place] [address] Trina Peter MD [address] [place] [address] 02/14/2025 1:00 PM EST Office Visit Adult Medicine - [place] [address] [place] [address] Bee Pedroza MD [address] [place] [address] 11/27/2025 11:30 AM EDT Office Visit [facility] Hematology Oncology [address] [place] [phone] Ashtyn Goff MD [address] [place] [phone] Scheduled Referrals Name Type Priority Associated Diagnoses Orde r Schedule Ambulatory referral to Neurology Outpatient Referral Routine Migraine without status migrainosus, not intractable, unspecified migraine type Occlusion of right vertebral artery TIA (transient ischemic attack) Ordered: 01/10/2025 documented as of this encounter Visit Diagnoses Diagnosis Migraine without status migrainosus, not intractable, unspecified migraine type- Primary Occlusion of right vertebral artery TIA (transient ischemic attack) Unspecified transient cerebral ischemia documented in this encounter Additional Health Concerns Assessment Noted Time PHQ-9 Depression Total Score: 5 10/15/19 25 11:32 AM EDT documented as of this encounter Care Teams Travel Trailer Components Assembler Relationship Specialty Start Date End Date Bee Pedroza MD [address] [facility] [address] PCP - General Internal Medicine 06/11/24 documented as of this encounter
--- OUTSIDE RECORDS SUMMARY | 2025-01-14 07:45 | XMS_ITS | Encounter Summary ---
Author Organization [facility] Address [address] [place] [address] Phone Care Team Providers Care Bit Sharpener Operator Name Role Phone Bee Pedroza MD Primary Care Provider Reason for Visit * Reason Comments Med Refill Encounter Details Date Type Department Care Team (Late st Contact Info) Description 11/29/2022 Refill [facility] [address] [place] [phone] Abdullahi Caruso [address] [place] [phone] Social History Tobacco Use Types Packs/Day Years [...] Support [facility] [address] [place] [phone] 03/05/2025 2:45 PM EST Office Visit [facility] [address] [place] [address] Abdullahi Caruso DO [address] [place] [address] documented as of this encounter Visit Diagnoses Not on filedocumented in this encounter Care Teams Bit Sharpener Operator Relationship Specialty Start Date End Date Bee Pedroza MD PCP - General Family Medicine 12/11/23 documented as of this encounter
--- OUTSIDE RECORDS SUMMARY | 2025-01-14 07:45 | XMS_ITS | Encounter Summary ---
Author Organization [facility] Address [address] [place] [address] Phone Care Team Providers Care Bell Neck Hammerer Name Role Phone Bee Pedroza MD Primary Care Provider [phone] Reason for Visit * Reason Onset Date Comments Med Refill 01/26/2024 Encounter Details Date Type Department Care Team (Late st Contact Info) Description 01/26/2024 Refill [facility] [address] [place] [phone] Abdullahi Caruso DO [address] [place] [address] [place] [phone] Social History Tobacco Use Types Packs/Day Years [...] Support [facility] [address] [place] [address] 03/05/2025 2:45 PM EST Office Visit [facility] [address] [place] [address] Abdullahi Caruso DO [address] [place] [address] documented as of this encounter Visit Diagnoses Not on filedocumented in this encounter Care Teams Bell Neck Hammerer Relationship Specialty Start Date End Date Bee Pedroza MD PCP - General Family Medicine 12/11/23 documented as of this encounter
--- NOTE | 2025-01-14 07:47 | MHC.OFFVIS ---
Vital Signs 01/14/25 07:54 Height 6 ft Weight 260 lb BMI 35.3 BP 146/78 H Blood Pressure Location Lt radial Position Sitting Respiration 16 Pulse 114 H Pulse Source Pulse Oximeter Pulse Oximetry (%) 96 Oxygen Delivery Method Room Air Intake Visit Reasons: Occlusion of rt vertebral artery, Migraine Cyanide Case Hardener Required: No Accompanied by: Spouse Allergies amoxicillin Allergy (Unknown, Verified 01/14/25 08:04) Unknown metronidazole Allergy (Unknown, Verified 01/14/25 08:04) Unknown Medication List - Last Reconciled 01/14/25 by Love Toribio CNP albuterol sulfate 90 mcg/actuation inhalation aspirin 81 mg PO DAILY bupropion HCl XL 300 mg PO DAILY bupropion HCl XL 150 mg PO DAILY gabapentin mg PO hydrochlorothiazide 12.5 mg PO DAILY insulin glargine (Lantus Solostar U-100 Insulin) units subcut latanoprost 0.005% drps ophthalmic (eye) lisinopril 40 mg PO DAILY melatonin 20 mg PO BEDTIME PRN metformin ER 1,000 mg PO BID nortriptyline 50 mg PO BEDTIME omeprazole 20 mg PO BID pravastatin 20 mg PO DAILY sumatriptan succinate mg PO tirzepatide (Mounjaro) mg subcut trazodone 100 mg PO BEDTIME PRN HPI Comments Details: Acacia is a 59-year-old female patient with a past history of hypertension, type 2 diabetes, left lower extremity amputee, hyperlipidemia, chronic depression, anxiety, asthma, and GERD who is here today for evaluation of worsening migraine. She was hospitalized in June of 2024 with presumed ?TIA? and had an outpatient EEG which was unremarkable. During her in-hospital workup, it was found that she has a possible short segment focal occlusion or severe narrowing of the V4 segment of the right vertebral artery with reconstitution of the vessel distally. The patient tells me today, she has had migraine headaches since she was a teenager often times awakening with her most severe headaches. Over the course of her life, she has had migraine-type episodes lasting for several hours occurring once every couple of months associated with severe nausea, vomiting, light sensitivity, and sound sensitivity. Generally her migraines were bifrontal with a ?jabbing? sensation. She has been placed on Fioricet in the past for treatment of migraines but had never been on any preventive medications specifically for migraine in the past. She is currently taking nortriptyline for her peripheral neuropathy symptoms but this has not helped her migraine symptoms. She tells me that in June of 2024, she was hospitalized at [facility] for stroke-like symptoms. She had been experiencing a low-grade headache for a week or so before awakening 1 morning feeling very dizzy. That morning while eating breakfast, she went to go curing pickling packer her milk and noticed that her right upper extremity was weak and she dropped her milk glass. Upon arrival to the emergency room, she was also having expressive aphasia and some cognitive slowing. Her right upper extremity weakness and expressive aphasia went on for a few days before resolving on its own. During her hospitalization, she also experienced a very severe headache primarily to the frontal area but predominantly to the left frontal area. She also was experiencing light and sound sensitivity as well as nausea and vomiting. Since this hospitalization, she has unfortunately had an ongoing headache. Her headaches have been present daily but with migraine symptoms at least a few times per week accompanied by light and sound sensitivity, nausea, and vomiting. She denies any vision changes with her migraines or any further focal weakness or aphasia. She did undergo a course of methylprednisolone for her back at which time she reports that her headaches improved significantly. Since stopping the steroid, her headaches have returned. Her mother and grandmother with a history of migraine though no known hemiplegia or other accompanying focal neurological deficits. Headache characteristics: Time of onset: Since childhood but more severe since June of 2024 Location:L>R bifrontal Radiation:None Positional component:No Character: Jabbing Severity: Can reach 10/10 Duration: Currently constant Frequency: Daily Acute aggravating factors: Bright light and sound Acute relieving factors: Rest in dark room Associated symptoms: Light sensitivity, sound sensitivity, nausea, vomiting, and dizziness Aura: Left-sided motor weakness and aphasia x1 episode. Denies any visual auras Headache triggers: Stress Relation to menses: Unknown Other related background information: Sleep: Reports poor sleep. She worked nights for years and has very minimal sleep. Stressors: General health Caffeine intake:Rare Alcohol intake:None Substance use:None Tobacco use:None Last eye exam:Late summer 2024 Last dental visit:Years. Denies clenching or grinding History of head injury:No Past medication trials: Nortriptyline - used for neuropathy but no benefit to headaches Sumatriptan-100 mg is currently ineffective but sumatriptan has worked well in the past Prior workup: CT angio head and neck at [facility] June 2024-possible short-segment focal occlusion or severe narrowing of the V4 segment of the right vertebral artery, with reconstitution of the vessel distally, of uncertain significance. No intracranial large vessel occlusion, aneurysm, dissection, or hemodynamically significant carotid stenosis. CT head June of 2024 at [facility]-no acute hemorrhage or intracranial mass effect Sleep study completed-results unknown [facility] Medical History (Updated 01/14/25 @ 09:00 by Love Toribio CNP) Neuroendocrine tumor TIA (transient ischemic attack) Glaucoma Depression Diabetic retinopathy Anxiety Diabetic neuropathy Fibromyalgia PCOS (polycystic ovarian syndrome) Asthma GERD (gastroesophageal reflux disease) CKD (chronic kidney disease) Obesity Chronic low back pain Pulmonary nodule Snoring Type 2 diabetes mellitus Nuclear sclerosis of both eyes PCOS (polycystic ovarian syndrome) HLD (hyperlipidemia) Essential hypertension Anxiety Migraine Occlusion of right vertebral artery Surgical History (Updated 01/14/25 @ 08:00 by Bang Hernadez CMA) History of cataract surgery Review of Systems Const All systems reviewed & are unremarkable except as noted in HPI and below Physical Exam Vital Signs: Last Vital Signs Pulse 114 H 01/14/25 07:54 Resp 16 01/14/25 07:54 BP 146/78 H 01/14/25 07:54 Pulse Ox 96 01/14/25 07:54 Oxygen Delivery Method Room Air 01/14/25 07:54 BMI result Body Mass Index 35.3 Const General: cooperative, healthy appearing, comfortable and no acute distress Nutritional Appearance: well nourished Orientation/consciousness: patient oriented x3 Limitations: no limitations HEENT Head: Yes normal to inspection and Yes normocephalic Eyes General: appearance normal, both eyes and all related structures Visual Danielson: normal visual danielson by confrontation Alignment and Position: alignment normal Periorbital: periorbital findings normal Eyelids: Yes eyelids normal Conjunctivae: conjunctivae normal Sclerae: sclerae normal Neck Neck: Yes normal visual inspection and Yes full ROM Back/Spine/Pelvis Other: Significant bilateral upper trapezius tenderness and significant bilateral occipital notch tenderness with retraction to touch on both sides Neuro General: patient oriented x3 and Unable to assess gait Cranial nerves: Yes CN's II-XII intact bilaterally Cognition (Neuro): normal cognition Gait exam (Neuro): Unable to assess gait Motor exam (neuro): no tremor noted and Other motor observations present (4/5 throughout aside from left lower extremity [id number] amputation) Sensory Exam: double simultaneous stimulation for sensation normal Deep tendon reflexes (DTR's): Right triceps reflex intensity grade: 1+, Left triceps reflex intensity grade: 1+, Rt Biceps (C5, C6): 1+, Left biceps reflex intensity grade: 1+, Right brachioradialis reflex intensity grade: 1+, Left brachioradialis reflex intensity grade: 1+, Right patellar reflex intensity grade: 1+ and Right ankle reflex intensity grade: 1+ Pupils: Normal pupillary reactivity/response: bilateral Psych Appearance: grossly normal Mental Status: mental status grossly normal Speech and movement: Normal speech and movement present and Clear speech present Affect: normal affect Attitude: cooperative Thought process: Normal thought process present Thought content: Normal thought content present Insight: Good insight present (Psych) Judgement: Good judgement present (Psych) Assessment & Plan Assessment & Plan (1) Chronic migraine without aura without status migrainosus, not intractable: Code(s): G43.709 - Chronic migraine without aura, not intractable, without status migrainosus Category: Medical (2) Hemiplegic migraine: Code(s): G43.409 - Hemiplegic migraine, not intractable, without status migrainosus Category: Medical Plan Acacia is a 59-year-old female patient with a past history of hypertension, type 2 diabetes, left lower extremity amputee, hyperlipidemia, chronic depression, anxiety, asthma, and GERD who is here today for evaluation of worsening migraine. She has a longstanding history of migraine which in the past has been episodic and responsive to sumatriptan. Unfortunately, in June of 2024 she had what is described to be most consistent with a hemiplegic migraine. Since then, she has had chronic migraine with daily headaches. She did have some resolution with a short course of steroid which was intended for her back. I will start her on a course of Depakote 250 mg twice daily for 2 weeks for cycle breaking and a once monthly injectable for long-term prevention. Once migraines are better controlled, she can retry sumatriptan for abortive relief. We may consider alternative agents for her acute therapy moving forward. Sleep is likely playing a role noting that she sleeps only a few hours in a 24 hour period at best. Her imaging performed at [facility] in June of 2024 was nonacute though there was mentioned of a possible right vertebral artery occlusion with reconstitution of the vessel distally. This is not likely playing a role in her symptoms. We will continue to closely monitor. I will see her again in 6 weeks or sooner if needed. Patient was given education with demonstration pen regarding the Emgality. -start Depakote 250 mg twice daily for 2 weeks in attempts to break current migraine cycle -start Emgality 240 mg loading dose and 120 mg maintenance dose for migraine prevention -follow up in 6 weeks. Moving forward, we will re-evaluate her acute therapy Medications: New divalproex (Depakote) 250 mg PO BID 28 tabs 0RF 14 days galcanezumab-gnlm (Emgality Pen) Loading dose 240 mg (2 mL) subcut ONCE 2 mL 0RF galcanezumab-gnlm (Emgality Pen) 120 mg subcut QMONTH 1 mL 4RF Coding Level of Care Code New Pt Level 4 (19378) Diagnoses Chronic migraine without aura without status migrainosus, not intractable G43.709 Hemiplegic migraine G43.409
[2025-01-14 07:54] VITALS: BP 146/78; PULSE 114; RESP 16; O2SAT 96; BMI 35.3
== END 2025-01-14 08:43 | disposition home or self-care (01) ==
LOC: HO.HSM 07:43
PROVIDERS: PCP Family Medicine; Visit Provider Nurse Practitioner
DX: G43.709 Chronic migraine without aura, not intractable, without status migrainosus (principal); G43.409 Hemiplegic migraine, not intractable, without status migrainosus
CPT/HCPCS: 99204

== ENCOUNTER → 2025-01-14 07:42 | Outpatient (BNVA) | payer MEDICARE, SELFPAY | PROVIDERS: PCP Family Medicine; Visit Provider Nurse Practitioner | DX: G43.709 Chronic migraine without aura, not intractable, without status migrainosus (principal); G43.409 Hemiplegic migraine, not intractable, without status migrainosus; I10 Essential (primary) hypertension | CPT/HCPCS: 99202 ==